=== PATIENT | female | born 1970 | race African-American/Black ===

== ENCOUNTER 2016-06-03 11:15 | Emergency (ER) | payer OTHER ==
[2016-06-03 11:32] VITALS: BP 131/63; PULSE 90; TEMP 98.5; BMI 18.6
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
[2016-06-03] MEDS ORDERED: KETOROLAC TROMETHAMINE 60 MG/2 ML VIAL IM ONE (13:26)
[2016-06-03] MEDS ORDERED: NAPROXEN 500 MG TABLET (FP) PO ONE (13:44)
[2016-06-03] MEDS ORDERED: NAPROXEN 500 MG TABLET (FP) ONE (13:49)
== END 2016-06-03 14:26 | disposition home or self-care (01) ==
LOC: JERFT 11:15
DX: M25.562 Pain in left knee (principal); M25.561 Pain in right knee
CPT/HCPCS: 73562-TC-LT; 73562-TC-RT; 84703; 99281-25

== ENCOUNTER 2016-06-08 20:56 | Emergency (ER) | payer OTHER ==
[2016-06-08 21:29] VITALS: BP 137/99; PULSE 74; TEMP 98; BMI 18.6
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
== END 2016-06-08 22:42 | disposition home or self-care (01) ==
LOC: SUPCPDRO 20:56 → JER 20:56
DX: M79.604 Pain in right leg (principal); V78.1XXA Passenger on bus injured in noncollision transport accident in nontraffic accident, initial encounter; Y92.488 Other paved roadways as the place of occurrence of the external cause
CPT/HCPCS: 99281-25

== ENCOUNTER 2020-02-23 16:49 | Emergency (ER) | payer OTHER ==
[2020-02-23 16:55] VITALS: BP 151/79; PULSE 81; TEMP 98.1; BMI 20.9
[2020-02-23] MEDS ORDERED: KETOROLAC TROMETHAMINE 30 MG/1 ML VIAL IM ONE (17:13)
[2020-02-23] MEDS ORDERED: KETOROLAC TROMETHAMINE 30 MG/1 ML VIAL ONE (17:19)
== END 2020-02-23 18:17 | disposition home or self-care (01) ==
LOC: JERFT 16:49
PROC: 3E0233Z Introduction of Anti-inflammatory into Muscle, Percutaneous Approach (ICD-10-PCS; principal; 2020-02-23)
DX: M54.5 Low back pain (principal); V89.2XXA Person injured in unspecified motor-vehicle accident, traffic, initial encounter
CPT/HCPCS: 72070-TC-FY; 72100-TC-FY; 99284-25

== ENCOUNTER 2023-03-18 08:36 | Emergency (ER) | payer OTHER ==
[2023-03-18 08:51] VITALS: BP 124/70; PULSE 86; RESP 18; TEMP 98.2; BMI 20.5
[2023-03-18] MEDS ORDERED: IBUPROFEN 600 MG TABLET (FP) PO ONE ×2 (09:43→09:54)
== END 2023-03-18 10:45 | disposition home or self-care (01) ==
LOC: JERFT 08:36
DX: M25.551 Pain in right hip (principal); M54.50 Low back pain, unspecified; Y04.8XXA Assault by other bodily force, initial encounter
CPT/HCPCS: 72100-TC-FY; 73502-TC-RT-FY; 99284-25